=== PATIENT | female | born 1985 | race Caucasian/White ===

== ENCOUNTER 2023-02-15 19:13 | Emergency (ER) | payer MEDICAID ==
[~2023-02-15] VITALS: Ht 154.9 cm; Wt 72.6 kg
--- NOTE | 2023-02-15 21:33 | NUR ---
Urine collected and sent to lab
--- NOTE | 2023-02-15 21:43 | NUR ---
PT CHANGED IN GOWN
[2023-02-15 21:53] LABS: BILIRUBIN,URINE NEGATIVE (NEGATIVE); COLOR,URINE YELLOW (YELLOW); LEUKOCYTE ESTERASE ,URINE NEGATIVE (NEGATIVE); NITRITE, URINE POSITIVE (NEGATIVE); PH,URINE 7.5 (5.0-8.0); PROTEIN,URINE 1+ mg/dl (NEGATIVE); UGLUCOSE TRACE mg/dL (NEGATIVE)
--- NOTE | 2023-02-15 21:57 | NUR ---
US TECH AT PT'S BEDSIDE
[2023-02-15 22:11] LABS: BACTERIA,URINE 2+ /HPF (None Seen); RBC,URINE NONE SEEN /HPF (0-2); SQUAMOUS EPITHELIAL CELL,UR Many /HPF (None Seen); WBC,URINE NONE SEEN /HPF (0-3)
[2023-02-15 22:12] LABS: MUCUS,URINE Few /LPF (None Seen)
[2023-02-15] MEDS ORDERED: SULF1TAB48 PO ×2 (22:34→22:40)
[2023-02-15 22:43] VITALS: BP 119/76
== END 2023-02-15 22:43 | disposition home or self-care (01) ==
LOC: ER 19:19
DX: N39.0 Urinary tract infection, site not specified (principal)
CPT/HCPCS: 76856-TC; 81001; 84703-TC; 87086-TC